=== PATIENT | male | born 1980 | race African-American/Black ===

== ENCOUNTER 2017-03-25 17:50 | Emergency (ER) | payer OTHER ==
[~2017-03-25] VITALS: Ht 172.7 cm; Wt 79.0 kg
[2017-03-25 17:51] VITALS: BP 125/78; PULSE 70; RESP 15; TEMP 97.5; O2SAT 100
--- NOTE | 2017-03-25 18:02 | PD ---
Physical Exam Date Seen by Provider: Mar 25, 2017 Time Seen by Provider: 18:00 Narrative 36 YOBM C/O RÍOS. PRESSURE BEHIND HIS L EYE. WORSE WITH STRESS OR LIGHTS. ON AND OFF FOR4 DAYS. PAIN 4/10 VS REVIEWED WAITING FOR BED PLACEMENT Data Data Last Documented VS Vital Signs Date Time Temp Pulse Resp B/P Pulse Ox O2 Delivery O2 Flow Rate FiO2 03/25/17 17:51 97.5 70 15 125/78 100 MDM Supervised Visit with EARNEST: No Scripts No Active Prescriptions or Reported Meds Keaton Gonzales Mar 25, 2017 18:02
--- NOTE | 2017-03-25 21:01 | PD ---
HPI Chief Complaint: Headache Time Seen by Provider: 20:50 Travel History International Travel<30 days: No Contact w/Intl Traveler<30days: No Traveled to known affect area: No History of Present Illness HPI 36-year-old male with history of PTSD presents for evaluation of headache. For the past 4 days the patient has been having intermittent left retro-orbital headache which is exacerbated by stress, anxiety, sensitivity to light. He reports that the headache resolves with the use of ibuprofen or when he drinks a caffeinated products such as Pepsi. He is currently having just a mild pressure behind the left eye. He denies any blurred vision, nausea or vomiting , fevers or chills, chest pain or shortness of breath, numbness or tingling or weakness. He spoke to his primary care physician who referred him here and he will also see him tomorrow in the office. The patient does report a history of chronic headaches ever since she was in the . He typically gets one severe headache a month which is somewhat different than his current headache. He has no other complaints at this time. [facility] Past Medical History Diabetes: No Diminished Hearing: No Sleep Apnea: Yes (C PAP) Social History Alcohol Use: Yes (occasionallly) Tobacco Use: No Substance Use: Yes (WINE, BEER, LIQUOR) Allergies-Medications (Allergen,Severity, Reaction): Coded Allergies: doxycycline (Unverified Allergy, Severe, Anaphylaxis, 03/25/17) Reported Meds & Prescriptions Reported Meds & Active Scripts Active Review of Systems Except as stated in HPI: all other systems reviewed are Neg Physical Exam Narrative GENERAL: Well-developed well-nourished male in no acute distress resting comfortably in hospital bed. SKIN: Warm and dry. HEAD: Atraumatic. Normocephalic. EYES: Pupils equal and round. No scleral icterus. No injection or drainage. ENT: No nasal bleeding or discharge. Mucous membranes pink and moist. NECK: Trachea midline. No JVD. CARDIOVASCULAR: Regular rate and rhythm. No murmur appreciated. RESPIRATORY: No accessory muscle use. Clear to auscultation. Breath sounds equal bilaterally. GASTROINTESTINAL: Abdomen soft, non-tender, nondistended. Hepatic and splenic margins not palpable. MUSCULOSKELETAL: No obvious deformities. No edema. NEUROLOGICAL: Awake and alert. No obvious cranial nerve deficits. Motor grossly within normal limits. Normal speech. Data Data Last Documented VS Vital Signs Date Time Temp Pulse Resp B/P Pulse Ox O2 Delivery O2 Flow Rate FiO2 03/25/17 17:51 97.5 70 15 125/[address] Brain W/O Iv Contrast(Rout) (03/25/17 ) Iwrh-Czksz-Igur 325-50-40 Mg (Fioricet 3 (03/25/17 22:15) MDM Medical Decision Making Medical Screen Exam Complete: Yes Emergency Medical Condition: Yes Medical Record Reviewed: Yes Differential Diagnosis Tension headache, migraine, cluster headache, temporal arteritis, acute angle- closure glaucoma, Narrative Course 36-year-old male with history of monthly headaches presents now with a 4 day intermittent left retro-orbital headache which is relieved with caffeinated products or NSAIDs. He currently has only mild or pressure behind the left eye. Physical examination is unremarkable. I suspect a benign headache. His primary care physician referred him here and plans on seeing him tomorrow in his office. A CT of the brain has therefore been ordered and is negative. The patient will be discharged with a short course of Fioricet. Diagnosis Primary Impression: Headache Qualified Code: R51 - Acute nonintractable headache, unspecified headache type Additional Instructions: Medication as needed. Stay well hydrated well-nourished. Follow-up with primary care physician. Return for any emergent medical conditions. Med/Other Pt SpecificInfo: No Change to Meds Disposition: 01 DISCHARGE HOME Condition: Stable Samuel Ocampo Mar 25, 2017 21:01
[2017-03-25] MEDS ORDERED: BUTA1CAP PO (21:03)
--- NOTE | 2017-03-25 21:56 | RADRPT ---
EXAM DATE/TIME: 03/25/2017 21:27 [facility] COMPARISON: No previous studies available for comparison. INDICATIONS : Cephalgia. RADIATION DOSE: 56.35 CTDIvol (mGy) MEDICAL HISTORY : None SURGICAL HISTORY : None. ENCOUNTER: Initial ACUITY: 1 day PAIN SCALE: 5/10 LOCATION: cranial TECHNIQUE: Multiple contiguous axial images were obtained of the head. Using automated exposure control and adj ustment of the mA and/or kV according to patient size, radiation dose was kept as low as reasonably a chievable to obtain optimal diagnostic quality images. DICOM format image data is available electro nically for review and comparison. FINDINGS: CEREBRUM: The ventricles are normal for age. No evidence of midline shift, mass lesion, hemorrhage or acute in farction. No extra-axial fluid collections are seen. POSTERIOR FOSSA: The cerebellum and brainstem are intact. The 4th ventricle is midline. The cerebellopontine angle i s unremarkable. EXTRACRANIAL: The visualized portion of the orbits is intact. SKULL: The calvaria is intact. No evidence of skull fracture. CONCLUSION: Normal examination for a patient of this age. Keaton Gallegos MD on March 25, 2017 at 21:54 Board Certified Radiologist. This report was verified electronically.
[2017-03-25] MEDS ORDERED: ACETAMIN 325 MG/BUTALBITAL 50 MG/CAFFEINE 40 MG TAB PO ONE (22:15)
== END 2017-03-25 22:30 | disposition home or self-care (01) ==
LOC: NEPK 17:50
DX: R51 Headache (principal); G47.30 Sleep apnea, unspecified
CPT/HCPCS: 70450; 99284